=== PATIENT | female | born 2000 | race American Indian/Alaskan Native ===

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

== ENCOUNTER 2021-08-16 19:40 | Outpatient (CLI) | payer MEDICAID ==
[2021-08-16 19:51] VITALS: BP 111/61
[2021-08-16] MEDS ORDERED: LACTATED RINGERS 500 ML IV ONE (19:57)
== END 2021-08-16 21:34 | disposition home or self-care (01) ==
LOC: TRG 19:40 → APU 19:41 → TRG 21:34
PROVIDERS: ATTEND Obstetrics & Gynecology
DX: O42.913 Preterm premature rupture of membranes, unspecified as to length of time between rupture and onset of labor, third trimester (principal); Z3A.30 30 weeks gestation of pregnancy
CPT/HCPCS: 36415; 84112

== ENCOUNTER 2021-09-02 15:21 | Outpatient (CLI) | payer MEDICAID ==
[2021-09-02 16:58] VITALS: BP 114/68
[2021-09-02] MEDS ORDERED: LACTATED RINGERS 1,000 ML IV ONE (18:00)
== END 2021-09-02 17:55 | disposition home or self-care (01) ==
LOC: TRG 15:21 → APU 15:57 → TRG 17:55
PROVIDERS: ATTEND Obstetrics & Gynecology
DX: O26.893 Other specified pregnancy related conditions, third trimester (principal); R25.2 Cramp and spasm; Z3A.32 32 weeks gestation of pregnancy
CPT/HCPCS: 59025

== ENCOUNTER 2021-09-10 17:31 | Emergency (ER) | payer MEDICAID | END 2021-09-11 07:00 | disposition left against medical advice (07) | LOC: ED 17:31 | DX: R11.10 Vomiting, unspecified (principal); Z53.21 Procedure and treatment not carried out due to patient leaving prior to being seen by health care provider ==

== ENCOUNTER 2021-09-18 16:53 | Outpatient (CLI) | payer MEDICAID ==
[2021-09-18 20:07] VITALS: BP 107/68
[2021-09-18] MEDS ORDERED: LACTATED RINGERS 1,000 ML IV ONE (21:05)
[2021-09-19] MEDS ORDERED: LACTATED RINGERS 500 ML IV ONE (03:32)
== END 2021-09-18 22:25 | disposition home or self-care (01) ==
LOC: APU 16:53 → TRG 16:53
PROVIDERS: ATTEND Obstetrics & Gynecology
DX: O21.2 Late vomiting of pregnancy (principal); Z3A.34 34 weeks gestation of pregnancy
CPT/HCPCS: 59025; 96360

== ENCOUNTER 2021-10-12 16:37 | Outpatient (CLI) | payer MEDICAID ==
[2021-10-12 20:12] VITALS: BP 107/69
--- NOTE | 2021-10-12 21:41 | Ultrasound Report ---
ULTRASOUND OBSTETRIC LIMITED INDICATION / CLINICAL INFORMATION: R/O RUPTURED MEMBRANES - ROB. Clinical Gestational Age (GA) in weeks, days: 38, 1 TECHNIQUE: Transabdominal. COMPARISON: None available. FINDINGS: HEART RATE (beats per minute): 153 AMNIOTIC FLUID INDEX (cm) = 10.6 (normal = 7-24 cm) PRESENTATION: Cephalic. ADDITIONAL FINDINGS: None. IMPRESSION: 1. Normal amniotic fluid index. Signer Name: Jelani Macias DO Signed: 10/12/2021 9:37 PM Workstation Name: [id number]
== END 2021-10-12 20:21 | disposition home or self-care (01) ==
LOC: TRG 16:37
PROVIDERS: ATTEND Obstetrics & Gynecology
DX: Z34.93 Encounter for supervision of normal pregnancy, unspecified, third trimester (principal); Z3A.39 39 weeks gestation of pregnancy
CPT/HCPCS: 36415; 76815; 84112

== ENCOUNTER 2021-10-15 11:46 | Outpatient (CLI) | payer MEDICAID ==
[2021-10-15 12:58] VITALS: BP 124/74
[2021-10-15] MEDS ORDERED: ACETAMINOPHEN W/CODEINE 300-30 MG TAB PO SCH (13:00)
== END 2021-10-15 13:19 | disposition home or self-care (01) ==
LOC: TRG 11:46 → APU 11:47 → TRG 13:19
PROVIDERS: ATTEND Obstetrics & Gynecology
DX: Z34.93 Encounter for supervision of normal pregnancy, unspecified, third trimester (principal); Z3A.38 38 weeks gestation of pregnancy
CPT/HCPCS: 59025; Q0177